=== PATIENT | female | born 1945 | race Caucasian/White ===

== ENCOUNTER → 2017-11-27 | Outpatient (CLI) | payer MEDICARE, OTHER ==
[~2017-11-27] MED LIST: ADULT LOW DOSE81 MG PO; ATENOLOL 50MG T50 M1 PO; CIPRO500 MG PO; FLAGYL500 MG PO; FOSAMAX 70 MG T70 MG PO; LEVAQUIN 250 M250 MG PO; LIPITOR 20 MG T20 M1 PO; MIRALAX17 GM PO; NOLVADEX20 MG PO; OMEPRAZOLE40 MG PO; PREDNISONE 10 M10 MG PO; VESICARE10 M1 PO; VITAMIN D1000 UNI1 PO; VITAMIN E400 UNIT PO; VITAMINC500 PO; ZESTRIL10 MG PO; ZOCOR 20 MG TAB20 M1 PO
[2017-11-27 08:29] LABS: CHOLESTEROL 132 mg/dL (<200); HDL CHOLESTEROL 53 mg/dL (>40); LDL CHOLESTEROL 66 mg/dL (<100); TC:HDL 2.5 Ratio (Not establshd); TRIGLYCERIDE 69 mg/dL (<150); VLDL 14 mg/dL (<40)
[2017-11-27 08:31] LABS: SERUM ASSESSMENT Clear
== END ==
LOC: M.RAD 07:37
PROVIDERS: General Practice
DX: Z12.31 Encounter for screening mammogram for malignant neoplasm of breast (principal); E78.2 Mixed hyperlipidemia; J44.9 Chronic obstructive pulmonary disease, unspecified; C50.911 Malignant neoplasm of unspecified site of right female breast; C64.9 Malignant neoplasm of unspecified kidney, except renal pelvis

== ENCOUNTER → 2018-05-16 | Outpatient (CLI) | payer MEDICARE, OTHER ==
[2018-05-16 11:16] LABS: CALCIUM 9.2 mg/dL (8.5-10.1); CREATININE 1.3 mg/dL (0.6-1.3); POTASSIUM 4.6 mmol/L (3.5-5.1); TOTAL BILIRUBIN 0.6 mg/dL (<0.1-1.0); TOTAL PROTEIN 6.5 g/dL (6.4-8.2)
== END ==
LOC: M.LAB 10:37
PROVIDERS: Internal Medicine Cardiovascular Disease
DX: I10 Essential (primary) hypertension (principal)

== ENCOUNTER → 2018-06-13 | Outpatient (CLI) | payer MEDICARE, OTHER | LOC: M.RAD 09:33 | DX: J90 Pleural effusion, not elsewhere classified (principal) ==

== ENCOUNTER → 2018-08-04 | Outpatient (CLI) | payer MEDICARE, OTHER ==
--- NOTE | 2018-08-04 16:45 | CARDNUC ---
[place] [address] CARDIAC NUCLEAR IMAGING REPORT Name: KRISTI SOSA Room: [facility]#: [id number] Admission: 08/04/18 Attend Phys: Nasir Lau, Discharge: Date of : 49 Date of Service: 08/04/18 1644 Report #: [id number] THIS REPORT FOR: //name// APPROVED REPORT Study performed: 08/04/2018 07:45:00 Indication: Dyspnea, increased fatigue, LE edema, Bilateral Carotid stenosis. Patient Location: Out-Patient Stress Tech: Aida Stahl Stress Nurse: Kristine Vasquez RN Ht: 5 ft 3 in Wt: 114 lbs BSA: 1.52 m2 BMI: 20.19 Medical History Medical History: Carotid artery disease, Increased fatigue, Breast and Kidney cancer, HX of LE edema, HTN, Hyperlipidemia, Smoking, SOB, PVD. Medications: ASA 81 mg, Atenolol, Atorvastatin, Lisinopril. Allergies: Docetaxel, Oxycodone. Cardiac Risk Factors: Age, Current Smoker, FHX of CAD, HTN, Hyperlipidemia, Smoking, PVD, Carotid Artery Disease, LE edema. Previous Cardiac Procedures: None Pretest Chest Pain Characteristics: No chest pain Exercise History: Physically active Physical Disabilities: Generalized weakness. Meds Held (24 hrs): Atenolol. Resting Data Rest SPECT myocardial perfusion imaging was performed in supine position 30 minutes following the intravenous injection of 10.7 mCi of Tc-99m Sestamibi. Time of rest injection: 08:05 The images were gated to evaluate regional wall motion and calculate left ventricular ejection fraction. Administration Route: IV Administration Site: Left AC Pharmacologic Stress Pharmacologic stress test was performed by injecting Regadenoson 0.4 mg IV push over 10-15 seconds immediately [place] [address] CARDIAC NUCLEAR IMAGING REPORT Name: KRISTI SOSA Room: [facility]#: [id number] Admission: 08/04/18 Attend Phys: Nasir Lau, Discharge: Date of : 49 Date of Service: 08/04/18 1644 Report #: [id number] injection of 36.0 mCi of Tc-99m Sestamibi. Time of stress injection: 0950 Administration Route: IV Administration Site: Left AC Heart Rate at time of stress injection: 132 bpm. Gated Stress SPECT was performed 40 minutes after stress injection. The images were gated to evaluate regional wall motion and calculate left ventricular ejection fraction. Prone imaging was performed. Stress Test Details Stress Test: Pharmacologic stress was paired with low level exercise. Reason for pharmacologic stress test: Generalized weakness.. HR Max Heart Rate (APMHR): 149 bpm Resting HR: 89 bpm Target HR (85% APMHR): 126 bpm Max HR Achieved: 132 bpm % of APMHR: 88 Recovery HR: 101 bpm BP Resting BP: 175/78 mmHg Max BP: 201/76 mmHg Recovery BP: 171/68 mmHg ECG Resting ECG: Sinus Rhythm Stress ECG: Sinus Tachycardia ST Change: None Arrhythmia: None Recovery ECG: Sinus Rhythm Recovery ST Change: None Recovery Arrhythmia: None Clinical Reason for Termination: Completed protocol Stress Symptoms: Dyspnea, Leg Fatigue. Exercise duration: 3 min 59 sec Exercise capacity: 2.30 METs The patient tolerated Lexiscan infusion without significant symptoms. Nurse Comments 73 year old female presented with recent HX of SOA, LE edema and increased fatigue. Patient reported being weak [place] [address] CARDIAC NUCLEAR IMAGING REPORT Name: KRISTI SOSA Room: [facility]#: [id number] Admission: 08/04/18 Attend Phys: Nasir Lau, Discharge: Date of : 49 Date of Service: 08/04/18 1644 Report #: [id number] slow, low treadmill for a short period of time. Patient tolerated a walking Lexiscan well. Recovery unremarkable with PO caffeine. Patient escorted by staff to Nuclear Medicine for images. Patient stable with no complaints at that time. Stress ECG Conclusion The baseline 12-lead EKG shows sinus rhythm withST or T wave abnormalities. EKGs and post Lexiscan infusion showed sinus rhythm and sinus tachycardia withMr. T wave changes when compared to baseline. There were no significant stress-induced arrhythmias. Study Quality Study: Good Artifact: No artifact Study Data At rest, the left ventricular ejection fraction was 68%.. Post stress, the left ventricular ejection was 75%.. TID = 1.13. Perfusion Normal left ventricular perfusion. Wall Motion Normal left ventricular wall motion. Nuclear Conclusion ECG Findings: negative for ischemia Clinical Findings: negative for ischemia Nuclear Findings: negative for ischemia Exercise Capacity: not assessed Left Ventricular Function: normal Risk Study: low Myocardial perfusion images show no defect to suggest infarct or ischemia. Left ventricular systolic function appears normal on gated studies. This is a low risk study. <Conclusion> The baseline 12-lead EKG shows sinus rhythm withST or T wave abnormalities. EKGs and post Lexiscan infusion [place] [address] CARDIAC NUCLEAR IMAGING REPORT Name: KRISTI SOSA Room: [facility]#: [id number] Admission: 08/04/18 Attend Phys: Nasir Lau, Discharge: Date of : 49 Date of Service: 08/04/18 1644 Report #: [id number] and sinus tachycardia withMr. T wave changes when compared to baseline. There were no significant stress-induced arrhythmias. <ELECTRONICALLY SIGNED> By: Nasir Lau MD, FAC 08/04/18 1644 1644 1644 Nasir Lau MD, [facility] /INF
== END ==
LOC: M.NUC 05-16 15:05 → M.CRD 07-23 08:00 → M.NUC 07:31
DX: I25.10 Atherosclerotic heart disease of native coronary artery without angina pectoris (principal); E78.00 Pure hypercholesterolemia, unspecified; I10 Essential (primary) hypertension; E78.5 Hyperlipidemia, unspecified; F17.210 Nicotine dependence, cigarettes, uncomplicated; Z79.01 Long term (current) use of anticoagulants; Z79.899 Other long term (current) drug therapy; Z88.8 Allergy status to other drugs, medicaments and biological substances

== ENCOUNTER → 2018-12-04 | Outpatient (CLI) | payer MEDICARE, OTHER | LOC: M.RAD 08:59 | DX: Z12.31 Encounter for screening mammogram for malignant neoplasm of breast (principal); M85.89 Other specified disorders of bone density and structure, multiple sites; E28.39 Other primary ovarian failure; Z78.0 Asymptomatic menopausal state; Z88.8 Allergy status to other drugs, medicaments and biological substances; Z91.048 Other nonmedicinal substance allergy status ==

== ENCOUNTER → 2019-05-14 | Outpatient (CLI) | payer MEDICARE, OTHER ==
[2019-05-14 14:17] LABS: HEMATOCRIT 42.3 % (37.0-47.0); HEMOGLOBIN 14.1 gm/dL (12.0-15.0); MCH 32.6 pg (26.0-34.0); MCHC 33.3 g/dL (28.0-37.0); MCV 98.1 fL (80.0-100.0); MPV 7.4 fl. (7.2-11.1); RBC 4.31 mil/uL (4.20-5.00); RDW-CV 14.8 % (10.5-14.5); WBC 7.4 thou/uL (4.0-11.0)
[2019-05-14 14:32] LABS: CALCIUM 9.2 mg/dL (8.5-10.1); CREATININE 1.2 mg/dL (0.6-1.3); POTASSIUM 5.3 mmol/L (3.5-5.1)
== END ==
LOC: M.RAD 13:50
PROVIDERS: Internal Medicine Cardiovascular Disease
DX: I10 Essential (primary) hypertension (principal); Z85.3 Personal history of malignant neoplasm of breast

== ENCOUNTER → 2019-06-02 | Outpatient (CLI) | payer MEDICARE, OTHER ==
[2019-06-02 13:56] LABS: CALCIUM 9.5 mg/dL (8.5-10.1); CREATININE 1.2 mg/dL (0.6-1.3); POTASSIUM 5.5 mmol/L (3.5-5.1)
== END ==
LOC: M.LAB 13:24
PROVIDERS: Internal Medicine Cardiovascular Disease
DX: E87.5 Hyperkalemia (principal)

== ENCOUNTER → 2019-06-17 | Outpatient (CLI) | payer MEDICARE, OTHER ==
[2019-06-17 11:15] LABS: CALCIUM 9.3 mg/dL (8.5-10.1); CREATININE 1.1 mg/dL (0.6-1.3); POTASSIUM 4.6 mmol/L (3.5-5.1)
== END ==
LOC: M.LAB 10:46
PROVIDERS: Internal Medicine Cardiovascular Disease
DX: E87.5 Hyperkalemia (principal)

== ENCOUNTER 2019-07-07 11:22 | Inpatient (IN) | payer MEDICARE, OTHER ==
[~2019-07-07] VITALS: Ht 157.5 cm; Wt 62.6 kg
[2019-07-07] MEDS ORDERED: MUPIROCIN1 GM TOP (12:16)
[2019-07-07] MEDS ORDERED: DULCOLAX STOOL100 M1 PO (12:18)
[2019-07-07] MEDS ORDERED: IPRAT-ALBUT 0.5-3 ML INH ×2 (12:23→12:24)
[2019-07-07] MEDS ORDERED: BROVANA15 MCG/2 M INH (12:26)
[2019-07-07] MEDS ORDERED: MIRALAX119 GM PO (12:27)
[2019-07-07] MEDS ORDERED: NYSTATIN100000 UNI SW&SWALLOW (12:28)
[2019-07-07] MEDS ORDERED: RAYOS5 MG PO (12:30)
[2019-07-07] MEDS ORDERED: PULMICORT0.5 MG/2 M INH (12:31)
[2019-07-07] MEDS ORDERED: TRANSDERM-SCOP1 EACH TRANSDERM (12:35)
[2019-07-07] MEDS ORDERED: TYLENOL325 MG PO (12:36)
[2019-07-07] MEDS ORDERED: ZOFRAN4 MG PO (12:44)
[2019-07-07 13:30] VITALS: BP 110/43
--- NOTE | 2019-07-07 16:30 | NUR ---
SW met with pt to complete initial assessment, introduce self, and SW role on inpt rehab unit. Pt alert, oriented, pleasant. Pt lives at home with her and grandson. 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 SW discussed pt possible needs at dc to continue to gain strength and continue to recover herself. Pt expressed understanding. Pt has supportive children. Pt dtr lives in the area and pt son lives in [place]. Pt has a RW available to her if needed. Pt does not have any hx of HH or SNF. Pt does not have supplemental oxygen at home. Pt to have trilogy at dc. (process for order for Trilogy completed on acute care and order for Tr[facility] on pt chart; to be delivered nearer to pt dc through [employer]). SW provided welcome folder and pt signed irf tanner consent form. SW to continue to follow to assist with safe dc planning.
--- NOTE | 2019-07-07 16:32 | NUR ---
1335 PATIENT ARRIVED TO [facility] FROM TELEMETRY. SEE ADMISSION ASSESSMENT.
[2019-07-07 20:00] VITALS: BP 120/39
[2019-07-08 05:34] LABS: HEMATOCRIT 25.6 % (37.0-47.0); HEMOGLOBIN 8.7 gm/dL (12.0-15.0); MCH 32.8 pg (26.0-34.0); MCHC 33.9 g/dL (28.0-37.0); MCV 96.7 fL (80.0-100.0); RBC 2.65 mil/uL (4.20-5.00)
--- NOTE | 2019-07-08 05:42 | NUR ---
ASSUMED CARES AT 1920. ALERT AND ORIENTED. PLEASANT. C/O GROIN PAIN THAT HAS HAD FOR PAST WEEK. TYLENOL GIVEN. O2 2L NC. MIN ASSIST WITH GAIT BELT AND WALKER. UP TO BATHROOM. UNSTEADY AT TIMES. DRESSING TO LEFT HAND INTACT. BLE EDEMA 1-2+. SLEPT MOST OF THE NIGHT. CALL LIGHT IN REACH. REMINDED PT TO USE CALL LIGHT. BED/CHAIR ALARM ON.
[2019-07-08 05:56] LABS: CALCIUM 8.4 mg/dL (8.5-10.1); CREATININE 0.9 mg/dL (0.6-1.3); POTASSIUM 5.1 mmol/L (3.5-5.1)
[2019-07-08 07:35] VITALS: BP 146/47
--- NOTE | 2019-07-08 10:48 | NUR ---
Nutrition: Pt admitted to rehab with COPD exac. Wt: 138#. Regular diet, tolerating well. Physician indicated Moderate PCM - defer DX. Alb 2.4, prealb 22.4. No nutrition concerns at this time. Mild risk.
--- NOTE | 2019-07-08 16:43 | NUR ---
Team conference held today. Plan to reteam to reassess pt length of stay during team conference next Saturday. Pt was out of room for xray at time of SW and Dr Cheng updating pts. SW to continue to follow to discuss with pt/pt family and assist with safe dc planning.
--- NOTE | 2019-07-08 18:42 | NUR ---
PT AOX4 THIS SHIFT, TOLERATING REGULAR DIET, TOLERATING 2L PER NC, WALKING PULSE OX PERFORMED AND PT O2 SATS DROPPED WITH AMBULATION AND O2 BELOW 2L, WILL CONTINUE TO TRIAL PT OFF O2. PT WENT FOR DOPPLER ULTRASOUND OF BLE, NO EVIDENCE OF DVT WAS NOTED. PT UP WITH SBA WITH MINIMAL ASSIST. L HAND SKIN DRESSING IS CDI THIS SHIFT. PT HAS NO C/O PAIN BUT WAS CONCERNED REGARDING BRUISING ON INNER THIGHS, DISCUSSED WITH TEAM AND FAMILY AND SPECULATE IT MAY HAVE BEEN RELATED TO HAVING TO USE LIFTING DEVICES THIS HOSPITAL STAY, PT WAS RELIEVED TO HAVE A POSSIBLE ANSWER. WILL CONTINUE TO MONITOR AND ASSESS.
[2019-07-08 19:57] VITALS: BP 115/41
[2019-07-09 04:46] LABS: ALBUMIN 2.7 g/dL (3.4-5.0); CALCIUM 8.1 mg/dL (8.5-10.1); POTASSIUM 4.7 mmol/L (3.5-5.1)
--- NOTE | 2019-07-09 05:23 | NUR ---
ASSUMED CARES AT 1915. ALERT AND ORIENTED. PLEASANT. O2 2L NC. MIN ASSIST WITH GAIT BELT AND WALKER. UP TO BATHROOM. BLE EDEMA 2-3+. SLEPT MOST OF THE NIGHT. CALL LIGHT IN REACH AND BED ALARM ON.
[2019-07-09 08:07] VITALS: BP 121/47
--- NOTE | 2019-07-09 16:28 | NUR ---
pt has worked with therapies and calls for assist. pt ambulates with walker and min assist of 1 with unsteady gait.prn for leg discomfort given this am, feet are 2+ edema,tubigrips on and legs elevated in recliner. pt continent of b+b and wears breif for stress inc. pt alert and orientated but can be forgetfull.pt has eaten meals in dinningroom.
[2019-07-09 20:00] VITALS: BP 127/45
--- NOTE | 2019-07-10 04:33 | NUR ---
ASSESSMENT: PT REMAIN ALERT AND ORIENT TIMES THREE, CAN BE FORGETFUL AT TIMES. ESPECIALLY AFTER JUST WAKENING UP FROM SLEEP. EASY TO REORIENT TO SITUATION. VSS, AFEBRILE. UP WIH WALKER/GB. PRN PAIN MEDS GIVEN WITH GOOD RESULTS. PT STATE THAT SHE WILL BE TAKING A SHOWER IN THE AM WITH THE INSTRUCTION OF OT. WILL CONTINUE TO MONITOR. GOOD PROGRESS TOWARDS DC GOALS.
[2019-07-10 08:22] VITALS: BP 117/44
[2019-07-10 20:40] VITALS: BP 129/39
--- NOTE | 2019-07-10 20:40 | NUR ---
SITTING UP IN RECLINER WITH LEGS ELEVATED. 2-3+ EDEMA IN LOWER EXTREMITIES. ADRIA WRAP AROUND LOWER EXTREMITIES DRY/INTACT. 02 NC AT TWO LITERS. TYLENOL GIVEN FOR COMPLAINT OF PAIN IN GROIN AREA. SNACK PROVIDED. CALL LIGHT WITHIN REACH.
--- NOTE | 2019-07-11 05:17 | NUR ---
RESTED QUIETLY WITH 02 NC AT TWO LITERS AND END OF BED ELEVATED DUE TO LOWER EXTREMITY EDEMA ESPECIALLY IN THE FEET. EDEMA LESSENED THE NIGHT PROGRESSED. UP X TWO DURING THE NIGHT TO THE BATHROOM TO VOID. HOURLY ROUNDING IN PROGRESS.
[2019-07-11 07:00] VITALS: BP 116/44
--- NOTE | 2019-07-11 16:48 | NUR ---
ALERT AND ORIENTED X4. UP WITH STAND ASSIST, GAIT BELT AND WALKER TO BATHROOM. USE O2 AT 2L/NC AT ALL TIMES TO KEEP O2 SAT GREATER THAN 90%. DENIES SOA WITH O2. DENIES NEED FOR PAIN MEDICATION. CONTINENT OF BOWEL AND BLADDER. USES CALL LIGHT WITHIN REACH. USES TUBI SINK MAKER ON LOWER EXTREMITIES FOR 1-2+PITTING EDEMA. FALL PRECAUTIONS IN PLACE.
[2019-07-11 20:00] VITALS: BP 117/42
[2019-07-12 05:00] LABS: HEMATOCRIT 24.3 % (37.0-47.0); HEMOGLOBIN 8.3 gm/dL (12.0-15.0); MCH 33.9 pg (26.0-34.0); MCV 99.6 fL (80.0-100.0); MPV 8.4 fl. (7.2-11.1); RBC 2.44 mil/uL (4.20-5.00); RDW-CV 19.2 % (10.5-14.5)
[2019-07-12 05:20] LABS: ANION GAP < 0 mmol/L (7-16); BUN 26 mg/dL (7-18); CALCIUM 8.3 mg/dL (8.5-10.1); CHLORIDE 104 mmol/L (98-107); CO2 37 mmol/L (21-32); CREATININE 0.9 mg/dL (0.6-1.3); GLUCOSE 108 mg/dL (70-99); MAGNESIUM 1.5 mg/dL (1.8-2.4); POTASSIUM 4.8 mmol/L (3.5-5.1); SODIUM 140 mmol/L (136-145)
--- NOTE | 2019-07-12 05:23 | NUR ---
ASSUMED PT CARE AT 1930. PT ALERT AND ORIENTED X4, POLITE AND COOPERATIVE WITH CARES. UP WITH SBA, GAIT BELT AND WALKER TO BATHROOM TO VOID X3. NO STOOL THIS SHIFT. TYLENOL X1 FOR GENERALIZED PAIN. ON ROOM AIR OVERNIGHT, SATS 91% TO 94%. EDEMA IN BLE, LEFT FOOT MORE THAN RIGHT. BOX LUNCH FOR SNACK. BED ALARM ON FOR SAFETY. USES CALL LIGHT APPROPRIATELY. HOURLY ROUNDING IN PROGRESS, WILL CONTINUE TO MONITOR.
[2019-07-12 08:00] VITALS: BP 114/72
[2019-07-12 15:11] VITALS: BP 130/64
--- NOTE | 2019-07-12 18:54 | NUR ---
PATIENT A&OX4. PATIENT USES GAIT BELT AND MIN ASSIST TO DININGROOM. PATIENT HAS NEW ORDERS FOR MAGNESIUM. PATIENT HAS 3+ PITTING EDEMA IN BILATERAL FEET/ANKLES AND IS WEARING TUBIGRIP. PATIENT HAS TO BANDAGES ON LEFT FA FROM SKIN TEARS. NOT OBSERVED TODAY. PATIENT IS ROOM AIR TODAY.
[2019-07-12 20:00] VITALS: BP 122/36
--- NOTE | 2019-07-13 05:11 | NUR ---
ASSUMED CARES AT 1915. ALERT AND ORIENTED. PLEASANT. MIN ASSIST WITH GAIT BELT AND WALKER. UP TO BATHROOM. BLE EDEMA 3+. TUBIGRIPS ON AND LEGS ELEVATED. SLEPT MOST OF THE NIGHT. CALL LIGHT IN REACH. BED ALARM ON.
[2019-07-13 08:30] VITALS: BP 121/75; BP 155/85
--- NOTE | 2019-07-13 18:40 | NUR ---
ALERT AND ORIENTED X4. UP WITH STAND BY ASSIST GAIT BELT AND WALKER. DENIED NEED FOR PAIN MEDICATION. NO C/O SOA ON ROOM AIR. O2 SAT 91% ON ROOM AIR THIS AM. USES CALL LIGHT WITHIN REACH. FALL PRECAUTIONS IN PLACE. CONTINENT OF URINE TODAY.
[2019-07-13 19:10] VITALS: BP 124/55
--- NOTE | 2019-07-14 00:43 | NUR ---
ASSUMED CARE AT 1930. PATIENT IN RECLINER WITH LEGS ELEVATED UNTIL AROUND 2200. ON ROOM AIR. BILAT LE EDEMA CONTINUES, TUBIGRIPS REMOVED AT HS. HAD APAP AT HS FOR PAIN. REFUSED ORAL NYSTATIN. UP WITH GAIT BELT, WALKER. VOIDS PER TOILET. LT HAND SKIN TEAR DRESSING C/D/I. HAD BOX LUNCH FOR HS SNACK, STATES SHE IS SO HUNGRY BECAUSE OF THE STEROIDS. HOURLY ROUNDS CONTINUE. BED AND CHAIR ALARMS IN USE. CALL LITE IN REACH.
[2019-07-14 05:36] LABS: HEMATOCRIT 25.3 % (37.0-47.0); HEMOGLOBIN 8.3 gm/dL (12.0-15.0); MCH 33.5 pg (26.0-34.0); MCV 101.7 fL (80.0-100.0); MPV 8.1 fl. (7.2-11.1); RBC 2.49 mil/uL (4.20-5.00); RDW-CV 22.4 % (10.5-14.5); WBC 6.1 thou/uL (4.0-11.0)
--- NOTE | 2019-07-14 05:50 | NUR ---
SLEPT OFF AND ON THROUGH THE NIGHT. AM MEDS GIVEN EARLY BECAUSE OF WANTING TO TRY TO GET MORE SLEEP AFTER INTERRUPTIONS FOR LABS AND R.T. TURNS SELF. MEDICATED FOR PAIN. SEE JUN. HOURLY ROUNDS CONTINUE. BED ALARM ON. CALL LITE IN REACH.
--- NOTE | 2019-07-14 06:37 | NUR ---
RECEIVED CALL AT 0602 THAT PATIENT'S SODIUM WAS A CRITICAL LEVEL OF 163. BEING THAT THIS WAS SO MUCH HIGHER FROM TWO DAYS AGO (140 ON 07/11) THIS LAB IS BEING REDRAWN. PATIENT INSTRUCTED TO REASON, AND AGREES. LAB PENDING OF THIS WRITING.
[2019-07-14 07:49] LABS: CALCIUM 8.1 mg/dL (8.5-10.1); CREATININE 1.1 mg/dL (0.6-1.3); MAGNESIUM 1.8 mg/dL (1.8-2.4); POTASSIUM 5.2 mmol/L (3.5-5.1)
[2019-07-14 07:58] VITALS: BP 108/50
[2019-07-14 10:04] LABS: CALCIUM 8.5 mg/dL (8.5-10.1); CREATININE 1.1 mg/dL (0.6-1.3); POTASSIUM 4.6 mmol/L (3.5-5.1)
--- NOTE | 2019-07-14 16:43 | NUR ---
ASSUMMED CARE OF PT AT 0730, PT ALERT AND ORIENTED, PT TRANSFERS WITH SBA, GB WALKER, EDEMA IN BILATERAL FEET, LEGS ELEVATED, TUBIGRIPS ON BILATERAL LEGS, PT C/O PAIN IN LEGS, MEDICATED PER ORDER, PT AMBULATES TO BATHROOM TO VOID, BM X 1 THIS SHIFT, TAKING FOOD AND FLUIDS WELL, PARTICIPATED IN ALL THERAPIES, HOURLY ROUNDING COMPLETED, ASSESSMENT COMPLETE, WILL CONTINUE TO MONITOR.
--- NOTE | 2019-07-14 17:07 | NUR ---
CM SPOKE TO THE PT TO DISCUSS ANY QUESTIONS OR CONCERNS THAT SHE MAY HAVE FOR TOMORROW'S TEAM CONFRENCE MEETING. PT INFORMS THAT SHE HAS NO QUESTIONS OR CONCERNS AT THIS TIME, BUT WOULD LIKE TO HAVE HH AT D/C WITH [facility] HER SPOUSE HAS HAD SERVICE WITH THEM IN THE PAST. 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 CM WILL REMAIN AVAILABLE TO ASSIST AND FOLLOW NEEDED.
[2019-07-14 19:05] VITALS: BP 148/61
--- NOTE | 2019-07-15 05:16 | NUR ---
ASSUMED PT CARE AT 1930. PT ALERT AND ORIENTED X4, POLITE AND COOPERATIVE WITH CARES. PT TRANSFERS WITH SBA, GAIT BELT AND WALKER. EDEMA IN BILATERAL FEET. LEGS ELEVATED ON PILLOW. TUBIGRIPS OFF OVERNIGHT. PT UP TO BATHROOM TO VOID WITH SBA, GAIT BELT AND WALKER. NO STOOL THIS SHIFT. TAKES PILLS WHOLE WITH WATER WITHOUT DIFFICULTY. USES CALL LIGHT APPROPRIATELY. CALL LIGHT IN REACH. HOURLY ROUNDING IN PROGRESS, WILL CONTINUE TO MONITOR.
[2019-07-15 09:00] VITALS: BP 107/44
--- NOTE | 2019-07-15 17:15 | NUR ---
DONOVAN and Dr Cheng met with pt to review team conference summary and plan for pt to dc home with family on Sunday 07/16. Pt in agreement with plan and provided pt preference of HH services to be [facility]. Team discussed pt being mod I on . SW to continue to follow to assist with finalizing safe dc plan for Saturday.
--- NOTE | 2019-07-15 18:51 | NUR ---
ASSUMED CARE OF THE PT AT 0700. PT A/OX4. DENIES THE NEED FOR PAIN MEDS. WORKED WITH PT AND OT. PT UP ASSIST X1 WITH A ROLLING WALKER. UP TO THE CHAIR TODAY . APPETIE FAIR. RESTING QUIETLY IN CHAIR WITH ALARM AND CALL LIGHT IN REACH. WILL CONTINUE TO MONITOR.
[2019-07-15 21:00] VITALS: BP 118/33
--- NOTE | 2019-07-16 01:09 | NUR ---
ASSUMED CARE AT 1930. PATIENT RESTED IN RECLINER UNTIL AROUND 2029. UP WITH SBA, GAIT BELT, WALKER. VOIDS PER TOILET, DOES OWN CARES. TAKES PILLS WHOLE WITH WATER. MEDICATED WITH APAP AT HS. BOX LUNCH FOR HS SNACK. DRESSINGS TO LT FA AND LT WRIST C/D/I. TURNS SELF IN BED. HOURLY ROUNDS CONTINUE. BED ALARM DIRECTOR OF [employer] LITE IN REACH. LEGS ELEVATED FOR 3-4+ BILAT PITTING LE EDEMA.
--- NOTE | 2019-07-16 05:06 | NUR ---
SLEPT MOST OF THE SHIFT EXCEPT AWAKING TO VOID. UP WITH SBA, GAIT BELT, WALKER. VOIDS PER TOILET, AND DOES OWN HYGIENE. NO FURTHER C/O PAIN. HOURLY ROUNDS CONTINUE. BED ALARM ON. CALL LITE IN REACH.
[2019-07-16 08:00] VITALS: BP 108/68
[2019-07-16 09:09] LABS: HEMATOCRIT 28.2 % (37.0-47.0); HEMOGLOBIN 9.4 gm/dL (12.0-15.0); MCH 34.4 pg (26.0-34.0); MCHC 33.5 g/dL (28.0-37.0); MCV 102.8 fL (80.0-100.0); MPV 7.5 fl. (7.2-11.1); RBC 2.74 mil/uL (4.20-5.00); RDW-CV 22.8 % (10.5-14.5); WBC 6.3 thou/uL (4.0-11.0)
[2019-07-16 09:21] LABS: CALCIUM 8.7 mg/dL (8.5-10.1); MAGNESIUM 1.6 mg/dL (1.8-2.4); POTASSIUM 4.4 mmol/L (3.5-5.1)
--- NOTE | 2019-07-16 17:52 | NUR ---
I ASSUMED CARE OF THE PATIENT AT 0700. SHE IS ALERT AND ORIENTED X4 AND IS UP MOD I IN HER ROOM. SHE USES A WALKER AND CALLS APPRORIATELY. BED IS IN THE LOW LOCKED POSITION AND CALL LIGHT IS IN REACH. HOURLY ROUNDING IS COMPLETED AND PATIENT NEEDS ARE MET. PAIN IS MANAGED WITH PRN MEDS. SHE IS PROGRESSING TOWARD HER GOALS AND SHOULD BE DISCHARGED TO HOME TOMORROW. WILL CONTINUE TO MONITOR.
[2019-07-16 20:04] VITALS: BP 122/44
[2019-07-17 02:17] VITALS: BP 122/44
--- NOTE | 2019-07-17 05:20 | NUR ---
ASSUMED CARE AT 1915. ALERT AND ORIENTED. PLEASANT. TREE IN RM. BLE EDEMA 2+. DRESSINGS TO LEFT ARM/HAND IN PLACE. UP TO BATHROOM. NO ISSUES. CALL LIGHT IN REACH.
[2019-07-17 09:21] VITALS: BP 102/41
[2019-07-17] MEDS ORDERED: BROVANA15 MCG/2 M INH (11:44)
[2019-07-17] MEDS ORDERED: LIPITOR 20 MG T20 M1 PO (11:44)
[2019-07-17] MEDS ORDERED: ATENOLOL 50MG T50 M1 PO (11:44)
[2019-07-17] MEDS ORDERED: IPRAT-ALBUT 0.5-3 ML INH ×2 (11:44)
[2019-07-17] MEDS ORDERED: LASIX 20 MG TAB20 MG PO (11:44)
[2019-07-17] MEDS ORDERED: ADULT LOW DOSE81 MG PO (11:44)
[2019-07-17] MEDS ORDERED: PULMICORT0.5 MG/2 M INH (11:44)
[2019-07-17] MEDS ORDERED: ZESTRIL10 MG PO ×2 (11:48→14:06)
[2019-07-17] MEDS ORDERED: K-DUR10 MEQ PO (11:48)
[2019-07-17] MEDS ORDERED: MEDROLDOSEPACK PO (11:48)
[2019-07-17 12:00] VITALS: BP 109/33
[2019-07-17 12:53] VITALS: BP 122/44
[2019-07-17 13:48] VITALS: BP 122/44
--- NOTE | 2019-07-17 14:24 | NUR ---
Pt to dc home with family today. DONOVAN faxed referral and final orders and med list to pt preference of HH services of [facility].
--- NOTE | 2019-07-17 16:18 | NUR ---
ASSUMMED CARE OF PT AT 0730, PT ALERT AND ORIENTED, PT MOD I IN ROOM, C/O PAIN IN GROIN AND LEGS, MEDICATED PER ORDER, EDEMA NOTED IN BILATERAL FEET, TUBIGRIPS ON, SKIN TEARS HEALING ON LEFT HAND/ARM, PARTICIPATED IN ALL THERAPIES, HOURLY ROUNDING COMPLETED, ASSESSMENT COMPLETE, ORDERS OBTAINED FOR DISCHARGE, PT EDUCATED ON MEDICATIONS, FOLLOW UP APPTS, WHEN TO CALL PHYSICIAN, ACTIVITY DIET, PT TO MAIN ENTRANCE PER W/C WITH BELONGINGS.
== END 2019-07-17 15:45 | disposition home health service (06) | DRG 947 ==
LOC: M.REH 11:22
PROVIDERS: Internal Medicine; ADMIT Physical Medicine & Rehabilitation
DX: R53.81 Other malaise (principal); J96.21 Acute and chronic respiratory failure with hypoxia; J96.22 Acute and chronic respiratory failure with hypercapnia; J18.9 Pneumonia, unspecified organism; G93.41 Metabolic encephalopathy; I21.A1 Myocardial infarction type 2; J44.1 Chronic obstructive pulmonary disease with (acute) exacerbation; J90 Pleural effusion, not elsewhere classified; E87.0 Hyperosmolality and hypernatremia; E87.2 Acidosis; N17.9 Acute kidney failure, unspecified; R65.10 Systemic inflammatory response syndrome (SIRS) of non-infectious origin without acute organ dysfunction; E44.0 Moderate protein-calorie malnutrition; J44.0 Chronic obstructive pulmonary disease with (acute) lower respiratory infection; J11.1 Influenza due to unidentified influenza virus with other respiratory manifestations; R41.0 Disorientation, unspecified; N20.0 Calculus of kidney; I10 Essential (primary) hypertension; Z88.6 Allergy status to analgesic agent; Z91.040 Latex allergy status; Z68.25 Body mass index [BMI] 25.0-25.9, adult; Z88.8 Allergy status to other drugs, medicaments and biological substances; Z82.49 Family history of ischemic heart disease and other diseases of the circulatory system

== ENCOUNTER → 2019-10-09 | Outpatient (CLI) | payer MEDICARE, OTHER ==
[~2019-10-09] MED LIST changes: +BROVANA15 MCG/2 M INH; +DULCOLAX STOOL100 M1 PO; +IPRAT-ALBUT 0.5-3 ML INH; +K-DUR10 MEQ PO; +LASIX 20 MG TAB20 MG PO; +MEDROLDOSEPACK PO; +MIRALAX119 GM PO; +MUPIROCIN1 GM TOP; +NYSTATIN100000 UNI SW&SWALLOW; +PULMICORT0.5 MG/2 M INH; +RAYOS5 MG PO; +TRANSDERM-SCOP1 EACH TRANSDERM; +TYLENOL325 MG PO; +ZOFRAN4 MG PO
[2019-10-09 12:54] LABS: ABSOLUTE EOSINOPHILS 0.1 thou/uL (0.0-0.7); ABSOLUTE LYMPHOCYTES 1.5 thou/uL (0.8-5.3); ABSOLUTE MONOCYTES 0.8 thou/uL (0.0-1.2); ABSOLUTE NEUTROPHILS 5.7 thou/uL (1.6-8.1); BASOPHILS 0.5 %; EOSINOPHILS 1.5 %; HEMATOCRIT 39.9 % (37.0-47.0); HEMOGLOBIN 13.2 gm/dL (12.0-15.0); LYMPHOCYTES 18.8 %; MCH 30.7 pg (26.0-34.0); MCHC 33.1 g/dL (28.0-37.0); MCV 92.5 fL (80.0-100.0); MPV 7.3 fl. (7.2-11.1); NUCLEATED RBCS 0 /100WBC; PLATELET COUNT* 198 thou/uL (150-400); POLYS 69.2 %; RBC 4.31 mil/uL (4.20-5.00); WBC 8.2 thou/uL (4.0-11.0)
[2019-10-09 13:09] LABS: ALBUMIN 3.6 g/dL (3.4-5.0); ALKALINE PHOSPHATASE 96 U/L (46-116); AMYLASE 44 U/L (25-115); ANION GAP 3 mmol/L (7-16); CALCIUM 9.2 mg/dL (8.5-10.1); CHLORIDE 105 mmol/L (98-107); CHOLESTEROL 174 mg/dL (<200); CO2 31 mmol/L (21-32); CREATININE 1.3 mg/dL (0.6-1.3); GLUCOSE 107 mg/dL (70-99); HDL CHOLESTEROL 86 mg/dL (>40); LDL CHOLESTEROL 72 mg/dL (<100); LIPASE 104 U/L (73-393); POTASSIUM 5.1 mmol/L (3.5-5.1); SGOT 25 U/L (15-37); SGPT 23 U/L (30-65); SODIUM 139 mmol/L (136-145); TOTAL BILIRUBIN 0.5 mg/dL (<0.1-1.0); TOTAL PROTEIN 7.4 g/dL (6.4-8.2); TRIGLYCERIDE 84 mg/dL (<150); VLDL 17 mg/dL (<40)
[2019-10-09 13:16] LABS: BUN 24 mg/dL (7-18)
[2019-10-09 13:18] LABS: SERUM ASSESSMENT Clear
== END ==
LOC: M.LAB 12:21
PROVIDERS: ATTEND Family Medicine
DX: U07.1 COVID-19 (principal); R30.9 Painful micturition, unspecified; I10 Essential (primary) hypertension; E78.2 Mixed hyperlipidemia; J18.9 Pneumonia, unspecified organism; J98.11 Atelectasis; J90 Pleural effusion, not elsewhere classified; N26.1 Atrophy of kidney (terminal)

== ENCOUNTER → 2019-10-28 | Outpatient (CLI) | payer MEDICARE, OTHER | LOC: M.ULTRA 12:52 | PROVIDERS: ATTEND Family Medicine | DX: E04.2 Nontoxic multinodular goiter (principal); J44.9 Chronic obstructive pulmonary disease, unspecified; R94.6 Abnormal results of thyroid function studies; R91.8 Other nonspecific abnormal finding of lung field ==

== ENCOUNTER → 2019-12-15 | Outpatient (CLI) | payer MEDICARE, OTHER ==
--- NOTE | ~2019-12-15 | PF ---
[address] [address] PULMONARY FUNCTION REPORT Name: KRISTI SOSA Room: [facility]#: [id number] Admission: 12/15/19 Attend Phys: Peace Aldrich MD Discharge: Date of : 49 Report #: [id number] THIS REPORT FOR: //name// CC: Peace Boxo DATE OF SERVICE: 12/15/2019 The FEV1/FVC ratio is severely decreased to 46% with a forced vital capacity decreased to 61% and FEV1 decreased to 37%. The FEF 25-75 is also markedly decreased to only 7% of the reference range. After the administration of a bronchodilator, there is a 12% increase in the FEV1. There is no significant change in any of the other values mentioned here. The patient's post-bronchodilator FEV1 is noted to be 830 mL. The total lung capacity is normal at 85% with residual volume normal, but towards the upper limit of normal range at 113. There is severe reduction in DLCO as adjusted for hemoglobin to 34%. The flow volume loop is concave upwards. IMPRESSION: 1. Severe obstruction with evidence of reversibility. 2. Lung volumes are normal; however, residual volume is noted to be close to the upper limit of normal range. 3. The DLCO as adjusted for hemoglobin is severely decreased to 34%. By: [id number] mine Estes
== END ==
LOC: M.PUL 12-10 14:00
PROVIDERS: ATTEND Internal Medicine
DX: Z12.31 Encounter for screening mammogram for malignant neoplasm of breast (principal); J44.9 Chronic obstructive pulmonary disease, unspecified; Z98.890 Other specified postprocedural states

== ENCOUNTER → 2020-02-16 | Outpatient (CLI) | payer MEDICARE, OTHER | LOC: M.RAD 12:12 | PROVIDERS: ATTEND Nurse Practitioner | DX: J98.4 Other disorders of lung (principal) ==

== ENCOUNTER → 2020-03-07 | Outpatient (CLI) | payer MEDICARE, OTHER ==
--- NOTE | 2020-03-07 15:15 | 2DMMODE ---
[place] [address] 2 D/M-MODE ECHOCARDIOGRAM Name: KRISTI SOSA Room: [facility]#: [id number] Admission: 03/07/20 Attend Phys: Shakira Perry, Discharge: Date of : 49 Date of Service: 03/07/20 1515 Report #: [id number] THIS REPORT FOR: cc: Venkata Raymond,Venkata Starkey,Lucas Ruelas MD [facility] ~ APPROVED REPORT Study performed: 03/07/2020 13:06:13 EXAM: Comprehensive 2D, Doppler, and color-flow Echocardiogram Patient Location: Out-Patient BSA: 1.73 HR: 77 bpm BP: 120/88 mmHg Other Information Study Quality: Fair Indications Dyspnea 2D Dimensions IVSd: 9.64 (7-11mm) LVOT Diam: 20.04 (18-24mm) LVDd: 38.99 mm PWd: 8.63 (7-11mm) Ascending Ao: 23.66 (22-36mm) LVDs: 25.62 (25-40mm) Aortic Root: 25.64 mm Volumes Left Atrial Volume (Systole) LA ESV Index: 16.90 mL/m2 Aortic Valve AoV Peak Rashid.: 1.21 m/s AO Peak Gr.: 5.82 mmHg LVOT Max P.11 mmHg AO Mean Gr.: 3.24 mmHg LVOT Mean P.11 mmHg LVOT Max V: 0.73 m/s AO V2 VTI: 27.72 cm LVOT Mean V: 0.49 m/s MANUELITO (VTI): 2.16 cm2 LVOT V1 VTI: 18.95 cm Mitral Valve E/A Ratio: 0.92 [place] [address] 2 D/M-MODE ECHOCARDIOGRAM Name: KRISTI SOSA Room: [facility]#: [id number] Admission: 03/07/20 Attend Phys: Shakira Perry, Discharge: Date of : 49 Date of Service: 03/07/20 1515 Report #: [id number] MV Decel. Time: 234.13 ms MV E Max Rashid.: 1.32 m/s MV PHT: 67.90 ms MVA (PHT): 3.24 cm2 TDI E/Lateral E': 18.86 E/Medial E': 18.86 Medial E' Rashid.: 0.07 m/s Lateral E' Rashid.: 0.07 m/s Pulmonary Valve PV Peak Rashid.: 0.91 m/s PV Peak Gr.: 3.33 mmHg Tricuspid Valve RAP Estimate: 5.00 mmHg TR Peak Gr.: 38.89 mmHg RVSP: 43.89 mmHg PA Pressure: 43.89 mmHg Left Ventricle The left ventricle is normal size. There is normal LV segmental wall motion. There is normal left ventricular wall thickness. Left ventricular systolic function is normal. The left ventricular ejection fraction is within the normal range. LVEF is 55-60%. Grade I - abnormal relaxation pattern. Right Ventricle The right ventricle is normal size. The right ventricular systolic function is normal. Atria The left atrium size is normal. The right atrium size is normal. Aortic Valve The aortic valve is normal in structure. No aortic regurgitation is present. There is no aortic valvular stenosis. Mitral Valve Moderate mitral annular calcification. Mild mitral regurgitation. No evidence of mitral valve stenosis. Tricuspid Valve The tricuspid valve is normal in structure. Moderate tricuspid regurgitation[place] [address] 2 D/M-MODE ECHOCARDIOGRAM Name: KRISTI SOSA Room: [facility]#: [id number] Admission: 03/07/20 Attend Phys: Shakira Perry, Discharge: Date of : 49 Date of Service: 03/07/20 1515 Report #: [id number] The pulmonary valve is normal in structure. There is no pulmonic valvular regurgitation. Great Vessels The aortic root is normal in size. IVC is normal in size and collapses >50% with inspiration. Pericardium There is no pericardial effusion. <Conclusion> The left ventricle is normal size. There is normal left ventricular wall thickness. Left ventricular systolic function is normal. The left ventricular ejection fraction is within the normal range. LVEF is 55-60%. Grade I - abnormal relaxation pattern. The right ventricle is normal size. The left atrium size is normal. The aortic valve is normal in structure. Moderate mitral annular calcification. Mild mitral regurgitation. No evidence of mitral valve stenosis. The tricuspid valve is normal in structure. Moderate tricuspid regurgitation. IVC is normal in size and collapses >50% with inspiration. There is no pericardial effusion. There is normal LV segmental wall motion. <ELECTRONICALLY SIGNED> By: Lucas Ellis MD, FACC 03/07/20 1515 14 1515 Lucas Ellis MD, FACC /INF
== END ==
LOC: M.CRD 02-22 11:00
PROVIDERS: ATTEND Nurse Practitioner
DX: I08.1 Rheumatic disorders of both mitral and tricuspid valves (principal); J44.9 Chronic obstructive pulmonary disease, unspecified; J96.12 Chronic respiratory failure with hypercapnia; J90 Pleural effusion, not elsewhere classified; J98.4 Other disorders of lung; N28.89 Other specified disorders of kidney and ureter; Z87.891 Personal history of nicotine dependence

== ENCOUNTER → 2020-05-23 | Day surgery (SDC) | payer MEDICARE, OTHER ==
[~2020-05-23] MED LIST changes: +CALCIUM 600+D1 EACH PO; +LIPITOR40 MG PO; +PREDNISONE 10 M10 M1 PO; +RECLAST 55 MG/100 M IV; +VITAMIN D350 MC3 PO
--- NOTE | ~2020-05-23 | PROC ---
[address] [place] [address] PROCEDURE REPORT Name: KRISTI SOSA Room: [facility].#: [id number] Admission: 05/23/20 Attend Phys: Pradeep Christine DO Discharge: Date of : 49 Report #: [id number] THIS REPORT FOR: cc: Venkata Raymond Vincent R. DO ~ [facility],Medical Records Staff For GI report, please see the Provation report in Perceptive 7 content. By: [id number] Records Staff [facility] /JUNIOR
[2020-05-23 08:56] LABS: HEMATOCRIT 37.2 % (37.0-47.0); HEMOGLOBIN 11.8 gm/dL (12.0-15.0); MCH 28.2 pg (26.0-34.0); MCHC 31.7 g/dL (28.0-37.0); MCV 89.1 fL (80.0-100.0); MPV 7.1 fl. (7.2-11.1); RBC 4.18 mil/uL (4.20-5.00); RDW-CV 17.4 % (10.5-14.5); WBC 10.8 thou/uL (4.0-11.0)
[2020-05-23 09:00] LABS: CALCIUM 9.3 mg/dL (8.5-10.1); CREATININE 1.8 mg/dL (0.6-1.3); POTASSIUM 4.2 mmol/L (3.5-5.1)
--- NOTE | 2020-05-23 15:14 | EKG ---
[place] [address] ELECTROCARDIOGRAM REPORT Name: KRISTI SOSA Room: [facility]#: [id number] Admission: 05/23/20 Attend Phys: Pradeep Christine, Discharge: Date of : 49 Date of Service: 05/23/20 0857 Report #: [id number] THIS REPORT FOR: //name// [facility] Test Date: 2020-05-23 Test Time: 08:57:02 Pat Name: KRISTI ALENASesar Department: Room: Gender: F Property Disposal Officer: : 1945 Requested By: Pradeep Christine Order Number: [id number] Reading MD: Nasir Lau Measurements Intervals [place] Rate: 76 P: 76 TN: 156 QRS: -18 QRSD: 89 T: 63 QT: 378 QTc: 426 Interpretive Statements Sinus rhythm Consider right atrial enlargement Borderline left axis deviation Compared to ECG 06/22/2019 12:23:48 Left anterior fascicular block no longer present Incomplete right bundle-branch block no longer present Right bundle-branch block no longer present Electronically Signed On 05-23-2020 15:13:58 CORROSION ENGINEER by Nasir Lau [email or web address] <ELECTRONICALLY SIGNED> By: Nasir Lau MD, [facility] 05/23/20 1513 0857 0857 Nasir Lau MD, [facility] /EPI
--- NOTE | 2020-05-25 16:06 | PATH ---
[address] [address] PATHOLOGY RPT PROCEDURE Name: ROCIODWAINELOISA Samuel Room: [facility]#: [id number] Admission: 05/23/20 Date of : 49 Discharge: Report #: [id number] Path Case #: [id number] [facility] Accession Number: [id number] . 01 Material submitted: . esophagus - ESOPHAGEAL BIOPSY AT 40 CM . 01 Clinical history: . GERD . 02 Diagnosis: Esophageal biopsy at 40 cm: - Benign esophageal and gastric/columnar types mucosa with moderate chronic and active inflammation typical of reflux, negative for goblet cells/diagnostic Mejia's metaplasia, granulomas and dysplasia. (PEE:lizzy; 05/25/2020) QMS 05/25/2020 1522 Local . 02 Electronically signed: . Darion Arias MD, Pathologist NPI- [id number] . 01 Gross description: . The specimen is received in formalin, labeled "Eloisa Creomare, esophageal biopsy at 40 cm". Received are two segments of pale huff soft tissue ranging in size from 0.3 to 0.4 cm in maximum dimensions. The specimen is submitted entirely in cassette A1. (CAA; 05/24/2020) QAC/QAC 05/24/2020 1720 Local . 02 Pathologist provided ICD-10: K20.90 . 02 CPT . 773566 Specimen Comment: A courtesy copy of this report has been sent to [phone], [phone] Specimen Comment: [id number] Specimen Comment: Report sent to / DR SANDERSON Performed at: [address], [place] [id number] MD Reymundo Israel MD Phone: [phone] Performed at: 02 [facility] [address], [place], [place] [id number] MD Darion rAias MD Phone: [phone]
== END | disposition home or self-care (01) ==
LOC: M.SUR 05-04 11:31
PROVIDERS: ATTEND Internal Medicine Gastroenterology
DX: R12 Heartburn (principal); K20.80 Other esophagitis without bleeding; K44.9 Diaphragmatic hernia without obstruction or gangrene; K21.9 Gastro-esophageal reflux disease without esophagitis; E11.9 Type 2 diabetes mellitus without complications; G47.30 Sleep apnea, unspecified; J44.9 Chronic obstructive pulmonary disease, unspecified; Z98.890 Other specified postprocedural states; Z79.899 Other long term (current) drug therapy; Z85.3 Personal history of malignant neoplasm of breast; Z85.528 Personal history of other malignant neoplasm of kidney; Z91.040 Latex allergy status; Z87.19 Personal history of other diseases of the digestive system

== ENCOUNTER → 2020-10-18 | Outpatient (CLI) | payer MEDICARE, OTHER | LOC: M.ULTRA 10:46 | PROVIDERS: ATTEND Otolaryngology | DX: I65.23 Occlusion and stenosis of bilateral carotid arteries (principal); E04.1 Nontoxic single thyroid nodule; R93.89 Abnormal findings on diagnostic imaging of other specified body structures; J90 Pleural effusion, not elsewhere classified ==

== ENCOUNTER → 2021-01-03 | Outpatient (CLI) | payer MEDICARE, OTHER | LOC: M.RAD 11:00 | PROVIDERS: ATTEND Internal Medicine Hematology & Oncology | DX: Z12.31 Encounter for screening mammogram for malignant neoplasm of breast (principal); M85.88 Other specified disorders of bone density and structure, other site; M81.0 Age-related osteoporosis without current pathological fracture; T38.6X5A Adverse effect of antigonadotrophins, antiestrogens, antiandrogens, not elsewhere classified, initial encounter; Z85.3 Personal history of malignant neoplasm of breast; Y92.89 Other specified places as the place of occurrence of the external cause ==

== ENCOUNTER → 2021-06-01 | Outpatient (CLI) | payer MEDICARE, OTHER ==
[~2021-06-01] MED LIST changes: +LIPITOR80 MG PO; +PROAIR HFA8.5 GM INH; +ZETIA10 MG PO
== END ==
LOC: M.LAB 12:53
PROVIDERS: ATTEND Internal Medicine Gastroenterology
DX: Z01.812 Encounter for preprocedural laboratory examination (principal); Z20.822 Contact with and (suspected) exposure to COVID-19

== ENCOUNTER → 2021-06-02 | Day surgery (SDC) | payer MEDICARE, OTHER ==
--- NOTE | ~2021-06-02 | PROC ---
[facility] [place] [address] [place] [place] [address] PROCEDURE REPORT Name: KRISTI SOSA Room: [facility].#: [id number] Admission: 06/02/21 Attend Phys: Pradeep Christine DO Discharge: Date of : 49 Report #: [id number] THIS REPORT FOR: cc: Venkata Raymond Vincent R. DO [facility],Medical Records Staff ~ For GI report, please see the Provation report in Perceptive 7 content. By: 0702Medical Records Staff CHASE /JUNIOR
[2021-06-02 09:13] LABS: HEMATOCRIT 35.1 % (37.0-47.0); HEMOGLOBIN 10.9 gm/dL (12.0-15.0); MCH 27.2 pg (26.0-34.0); MCV 87.8 fL (80.0-100.0); MPV 7.5 fl. (7.2-11.1); RDW-CV 17.5 % (10.5-14.5); WBC 7.9 thou/uL (4.0-11.0)
[2021-06-02 09:31] LABS: CALCIUM 8.8 mg/dL (8.5-10.1); CREATININE 1.8 mg/dL (0.6-1.3); POTASSIUM 5.2 mmol/L (3.5-5.1)
--- NOTE | 2021-06-02 09:46 | EKG ---
[place] [address] ELECTROCARDIOGRAM REPORT Name: KRISTI SOSA Room: [facility]#: [id number] Admission: 06/02/21 Attend Phys: Pradeep Christine, Discharge: Date of : 49 Date of Service: 06/02/21905 Report #: [id number] THIS REPORT FOR: //name// [facility] Test Date: 2021-06-02 Test Time: 09:06:53 Pat Name: KRISTI SOSA Department: Room: Gender: F Ecommerce Marketing Manager: Roxane WATKINS RN : 1945 Requested By: Pradeep Christine Order Number: [id number] Reading MD: Sincere Moran Measurements Intervals [place] Rate: 72 P: 69 [place]: 179 QRS: -33 QRSD: 93 T: 58 QT: 416 QTc: 456 Interpretive Statements Sinus rhythm Left axis deviation Low voltage, precordial leads Compared to ECG 05/23/2020 08:57:02 Low QRS voltage now present Electronically Signed On 06-02-2021 9:45:45 ECONOMIC DEVELOPMENT SPECIALIST by Sincere Moran [email or web address] <ELECTRONICALLY SIGNED> By: Sincere Moran MD, [facility] 06/02/21 0945 5 5 Sincere Moran MD, [facility] /EPI
== END | disposition home or self-care (01) ==
LOC: M.SUR 04-25 06:50
PROVIDERS: ATTEND Internal Medicine Gastroenterology
DX: Z12.11 Encounter for screening for malignant neoplasm of colon (principal); Z80.0 Family history of malignant neoplasm of digestive organs; K57.30 Diverticulosis of large intestine without perforation or abscess without bleeding; K64.4 Residual hemorrhoidal skin tags; I25.10 Atherosclerotic heart disease of native coronary artery without angina pectoris; J44.9 Chronic obstructive pulmonary disease, unspecified; E78.5 Hyperlipidemia, unspecified; K21.9 Gastro-esophageal reflux disease without esophagitis; Z98.890 Other specified postprocedural states; Z79.899 Other long term (current) drug therapy; Z85.3 Personal history of malignant neoplasm of breast; Z85.528 Personal history of other malignant neoplasm of kidney; Z91.040 Latex allergy status; Z88.8 Allergy status to other drugs, medicaments and biological substances